=== PATIENT | female | born 1965 | race Caucasian/White ===

== ENCOUNTER 2020-06-06 12:19 | Emergency (ER) | payer OTHER, SELFPAY ==
--- NOTE | 2020-06-06 12:49 | ED.GENADULT ---
HPI - General Adult General Chief complaint: Urogenital-Female Stated complaint: POS UTI Time Seen by Provider: 06/06/20 12:52 Source: patient Mode of arrival: ambulatory Limitations: no limitations History of Present Illness HPI narrative: 54-year-old female patient presents to the [facility] with complaints of urinary symptoms that started this morning. Patient states she has had pain with urination, she thinks she has noticed some blood in her urine, urgency and frequency. Patient states she has a little bit of low back pain but denies any fevers, body aches or chills. Patient denies any or breast-feeding or any chance for STDs stating that she is not currently sexually active. Related Data Home Medications Medication Instructions Recorded Confirmed clonazepam 0.25 mg PO HS 06/06/20 06/06/20 Allergies Allergy/AdvReac Type Severity Reaction Status Date / Time No Known Allergies Allergy Verified 06/06/20 12:44 Review of Systems Review of Systems: Narrative: CONSTITUTIONAL: Denies fever, chills, or sweats. EYES: Denies visual changes, redness, or discharge. ENT: Denies rhinorrhea, congestion, sore throat, or otalgia. CARDIOVASCULAR: Denies chest pain, palpitations, or edema. RESPIRATORY: Denies cough or dyspnea. GASTROINTESTINAL: Denies abdominal pain, nausea, vomiting, or diarrhea. GENITOURINARY: Positive dysuria and hematuria started this morning SKIN: Denies rash or itching. MUSCULOSKELETAL: Denies back pain, joint pain, or myalgia. NEUROLOGIC: Denies headache, numbness, or weakness. PSYCHIATRIC: Denies anxiety or depression. PMFSH Comments At the time of my signature I agree with nursing past medical history, surgical, social, and family history. There is no relevant family history pertinent to the presenting complaint. Exam Narrative: Exam Narrative: GENERAL: Well-appearing, well-nourished, and in no acute distress. HEAD: Normocephalic, atraumatic. EYES: PERRLA and EOMI. ENT: Nares clear, no rhinorrhea or epistaxis. Mucous membranes moist. NECK: Supple. No lymphadenopathy CHEST: Clear to auscultation. No respiratory distress. HEART: Regular rate and rhythm. No murmur heard. Normal peripheral pulses. ABDOMEN: Soft, nontender, nondistended, normal active bowel sounds. Patient does have a little left-sided CVA tenderness on percussion. EXTREMITIES: Normal range of motion. No edema. SKIN: Warm, dry, no rash. NEURO: No focal deficits. Alert and oriented x3. Course Vital Signs Vital signs: Vital signs reviewed. Medical Decision Making Differential Diagnosis Differential Diagnosis: Differential diagnosis: Uncomplicated lower UTI, uncomplicated UTI, pyelonephritis Cussed with patient it does appear that based on her symptoms as well as her urine dip that she does have a urinary tract infection. Discussed with patient we will go ahead and start her on some antibiotics as well send her home with some Pyridium for the urinary pain. Discussed with patient that if the urine culture shows that she needs a different type of antibiotic based on her culture results then we would call her and change her antibiotic at that time. Patient verbalized understanding of this denies any other questions or concerns at this time. Lab Data Labs: Urine Glucose Negative Reference Range: Negative Urine Bilirubin Negative Reference Range: Negative Urine Ketone Negative Reference Range: Negative Urine Specific [place] 1.010 Reference Range:1.001-1.035 Urine Blood 3+ Reference Range: Negative * * Urine pH 6.0 Reference Range: 5.0-9.0 Urine Protein 2+ Reference Range: Negative Urine Urobilinogen 0.2 Reference Range: 0.2-1.0 Urine Nitrate Negative Reference Range: Ne
== END 2020-06-06 13:04 | disposition home or self-care (01) ==
PROVIDERS: Emergency Provider Nurse Practitioner Family; PCP Internal Medicine
DX: N30.01 Acute cystitis with hematuria (principal)
CPT/HCPCS: 81003; 87086; 87088; 99213; G0463

== ENCOUNTER → 2021-03-30 15:14 | Outpatient (REF) | payer OTHER, SELFPAY | LOC: ANHLAB 15:14 | PROVIDERS: PCP Internal Medicine; Visit Provider Nurse Practitioner | DX: R22.31 Localized swelling, mass and lump, right upper limb (principal) | CPT/HCPCS: 88304 ==

== ENCOUNTER 2021-08-02 08:28 | Emergency (ER) | payer OTHER, SELFPAY ==
--- NOTE | 2021-08-02 08:33 | ED.URI ---
HPI - URI/Sore Throat General Chief Complaint: Upper Respiratory Infection Stated Complaint: clogged ear/cough/congestion Time Seen by Provider: 08/02/21 09:00 Source: patient and RN notes reviewed Mode of arrival: ambulatory Limitations: no limitations History of Present Illness HPI Narrative: 55-year-old female presents with concern for 4-day history of clogged ears, cough, congestion, nasal drainage. 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 She reports she had a negative rapid Covid test yesterday. She reports taking several [id number] remedies without relief. She denies shortness of breath, fever, chills. Reports body aches and general malaise MD elicited complaint: cough Related Data Home Medications Medication Instructions Recorded Confirmed clonazepam 0.25 mg PO HS 06/06/20 08/02/21 Allergies Allergy/AdvReac Type Severity Reaction Status Date / Time No Known Allergies Allergy Verified 08/02/21 09:07 Review of Systems Review of Systems: CONSTITUTIONAL: Reports malaise. Denies chills, sweats, or fever. EYES: Denies visual changes, redness, or discharge. ENT: Reports rhinorrhea, congestion, sinus pain, otalgia. Denies sore throat. CARDIOVASCULAR: Denies chest pain, palpitations, or edema. RESPIRATORY: Reports cough. Denies dyspnea. GASTROINTESTINAL: Denies abdominal pain, nausea, vomiting, diarrhea SKIN: Denies rash or itching. MUSCULOSKELETAL: Reports myalgia. NEUROLOGIC: Denies headache. All systems reviewed & are unremarkable except as noted in HPI and below PMFSH Past Medical History Medical History Anxiety Surgical History Surgical History History of appendectomy History of hysterectomy History of tonsillectomy Social History Social History (System 06/16/21 @ 11:46 by Aarti Valdez) Smoking status: Never smoker Alcohol intake: never Substance use: never Comments At time of signature, agree with nursing past medical, surgical, social and family history. There is no relevant family history pertinent to the presenting complaint Exam Narrative: GENERAL: Well-appearing, well-nourished, and in no acute distress. HEAD: Normocephalic EYES: PERRLA, conjunctivae clear ENT: Nares clear, clear discharge. Mucous membranes moist. TM pearly tavarez with dull light reflex bilaterally; no tragal tenderness. Oropharynx not erythematous without lesions. Tonsils not enlarged and without exudate, no drooling, no hoarseness, no trismus, uvula midline. NECK: Supple. No lymphadenopathy CHEST: Clear to auscultation, breath sounds equal. No wheezing, rhonchi, rales, or stridor. No respiratory distress, speaks in full sentences. Cough noted HEART: Regular rate and rhythm. No murmur heard. SKIN: Warm, dry, no rash. NEURO: Alert and oriented x3. PSYCH: Normal mood and affect Course Course Emergency Course: Patient is aware of diagnosis, understands and agrees to treatment plan. Anticipatory guidance given. Patient agrees to follow-up as directed and is aware of reasons to seek care at the emergency department. Portions of this record may have been created with voice recognition software Vital Signs Vital signs: Vital Signs Temperature 98.8 F 08/02/21 08:43 Pulse Rate 83 08/02/21 08:43 Respiratory Rate 16 08/02/21 08:43 Blood Pressure 127/78 08/02/21 08:43 Pulse Oximetry 99 08/02/21 08:43 Temperature 98.8 F 08/02/21 08:43 Pulse Rate 83 08/02/21 08:43 Respiratory Rate 16 08/02/21 08:43 Blood Pressure 127/78 08/02/21 08:43 Pulse Oximetry 99 08/02/21 08:43 Reviewed. MDM - URI/Sore Throat MDM Narrative Medical decision making narrative: Differential diagnosis considered: Olmedo virus, strep pharyngitis, allergic rhinitis, upper respiratory tract infection, sinusitis, rhinosinusitis, nasopharyngit
[2021-08-02 08:43] VITALS: BP 127/78; PULSE 83; RESP 16; TEMP 37.1; O2SAT 99
== END 2021-08-02 09:25 | disposition home or self-care (01) ==
PROVIDERS: Emergency Provider Nurse Practitioner; PCP Internal Medicine
DX: J06.9 Acute upper respiratory infection, unspecified (principal); Z20.822 Contact with and (suspected) exposure to COVID-19
CPT/HCPCS: 87426; 99213; C9803; G0463

== ENCOUNTER 2021-11-25 15:39 | Emergency (ER) | payer OTHER, SELFPAY ==
[2021-11-25 15:49] VITALS: BP 123/69; PULSE 75; RESP 16; TEMP 36.7; O2SAT 99
--- NOTE | 2021-11-25 15:55 | ED.FEMALEGU ---
HPI - Female Genitourinary General Chief complaint: Urogenital-Female Stated complaint: UTI Time Seen by Provider: 11/25/21 15:55 Source: patient Mode of arrival: ambulatory Limitations: no limitations History of Present Illness HPI Narrative: 55-year-old female presents with urinary urgency frequency dysuria since yesterday. Denies fever chills, denies nausea vomiting. No abdominal or back pain. Denies of frequent UTIs. All systems reviewed and negative except as noted above. Related Data Home Medications Medication Instructions Recorded Confirmed clonazepam 1 mg PO BID 11/25/21 11/25/21 trazodone 100 mg PO HS 11/25/21 11/25/21 Allergies Allergy/AdvReac Type Severity Reaction Status Date / Time No Known Allergies Allergy Verified 11/25/21 15:41 Review of Systems Review of Systems: CONSTITUTIONAL: Denies fever, chills, or sweats. EYES: Denies visual changes, redness, or discharge. ENT: Denies rhinorrhea, congestion, sore throat, or otalgia. CARDIOVASCULAR: Denies chest pain, palpitations, or edema. RESPIRATORY: Denies cough or dyspnea. GASTROINTESTINAL: Denies abdominal pain, nausea, vomiting, or diarrhea. GENITOURINARY: Reports dysuria. Denies hematuria. SKIN: Denies rash or itching. MUSCULOSKELETAL: Denies back pain, joint pain, or myalgia. NEUROLOGIC: Denies headache, numbness, or weakness. PSYCHIATRIC: Denies anxiety or depression. All other systems reviewed are negative, except as documented in HPI. [facility] Past Medical History Medical History Anxiety Surgical History Surgical History History of appendectomy History of hysterectomy History of tonsillectomy Social History Social History (System 06/16/21 @ 11:46 by Aarti Valdez) Smoking status: Never smoker Alcohol intake: never Substance use: never Comments At time of signature, agree with nursing past medical, surgical, social and family history. There is no relevant family history pertinent to the presenting complaint. Exam Narrative: GENERAL: This is a well-nourished, well-developed patient, in no apparent distress. HEAD: normocephalic, atraumatic. EYES: PERRL. Sclera clear/white. EARS: External ears normal. NOSE: External nose normal. THROAT: Mucous membranes moist. NECK: Neck supple, non-tender without lymphadenopathy, masses or thyromegaly. CARDIOVASCULAR: Regular rate and rhythm without murmurs, gallops, or rubs. RESPIRATORY: Clear to auscultation. Breath sounds equal bilaterally. No wheezes, rales, or rhonchi. SKIN: warm, Dry, intact with no suspicious lesions or rash, good texture and turgor. NEURO: awake, alert, and oriented to person, place and time. There were no obvious focal neurologic abnormalities. EXTREMITIES: Normal range of motion. BACK: Nontender without deformity. No CVA tenderness. Course Course Level of Care: Express Care Visit Vital Signs Vital signs: Vital Signs Temperature 36.7 C 11/25/21 15:49 Pulse Rate 75 11/25/21 15:49 Respiratory Rate 16 11/25/21 15:49 Blood Pressure 123/69 11/25/21 15:49 Pulse Oximetry 99 11/25/21 15:49 Temperature 36.7 C 11/25/21 15:49 Pulse Rate 75 11/25/21 15:49 Respiratory Rate 16 11/25/21 15:49 Blood Pressure 123/69 11/25/21 15:49 Pulse Oximetry 99 11/25/21 15:49 Reviewed MDM - Female Genitourinary MDM Narrative Medical decision making narrative: Patient is aware of diagnosis, understands and agrees to treatment plan. Anticipatory guidance given. Patient agrees to follow-up as directed and is aware of reasons to seek care at the emergency department. Portions of this record may have been created with voice recognition software Differential Diagnosis Differential diagnosis: Likely urinary tract infection and cystitis Lab Data Labs: Urine Glucose Trace
== END 2021-11-25 16:03 | disposition home or self-care (01) ==
PROVIDERS: Emergency Provider Nurse Practitioner Family; PCP Internal Medicine
DX: N39.0 Urinary tract infection, site not specified (principal); F41.9 Anxiety disorder, unspecified
CPT/HCPCS: 81003; 87086; 87088; 99213; G0463

== ENCOUNTER 2023-06-05 13:00 | Emergency (ER) | payer OTHER, SELFPAY ==
[2023-06-05 13:16] VITALS: BP 106/68; PULSE 68; RESP 16; TEMP 36.9; O2SAT 99
--- NOTE | 2023-06-05 14:08 | ED.URI ---
HPI - URI/Sore Throat General Chief Complaint: Upper Respiratory Infection Stated Complaint: HEADACHE/CONGESTION Time Seen by Provider: 06/05/23 14:03 Source: patient and RN notes reviewed Mode of arrival: ambulatory Limitations: no limitations History of Present Illness HPI Narrative: Patient presents today complaining of an 8 day history of nasal congestion sinus pressure, bilateral ear pressure, headache, cough. Denies fever or shortness of breath. States symptoms have worsened since onset. She has been taking Zyrtec D, ibuprofen, and Excedrin without much relief and currently rates her pain 5/10. Related Data Home Medications Medication Instructions Recorded Confirmed clonazepam 1 mg tablet 1 mg PO BID 11/25/21 11/25/21 trazodone 100 mg tablet 100 mg PO HS 11/25/21 11/25/21 Allergies Allergy/AdvReac Type Severity Reaction Status Date / Time No Known Allergies Allergy Verified 11/25/21 15:41 Review of Systems Review of Systems: CONSTITUTIONAL: Denies body aches, fever, chills, or sweats. EYES: Denies visual changes, redness, or discharge. ENT: Denies rhinorrhea, sore throat, or otalgia.+ nasal congestion, ear fullness CARDIOVASCULAR: Denies chest pain, palpitations, or edema. RESPIRATORY: Denies dyspnea.+ cough GASTROINTESTINAL: Denies abdominal pain, nausea, vomiting, or diarrhea. GENITOURINARY: Denies dysuria or hematuria. SKIN: Denies rash, itching, or wounds. MUSCULOSKELETAL: Denies back pain, joint pain, or myalgia. NEUROLOGIC: Denies numbness, tingling, or weakness.+ headache PSYCH: Denies depression or anxiety. [facility] Past Medical History Medical History Anxiety Surgical History Surgical History History of appendectomy History of hysterectomy History of tonsillectomy Social History Social History Smoking status: Never smoker Alcohol intake: never Substance use: never Comments At time of signature, I have reviewed and agree with nursing past medical, surgical, social and family history unless otherwise noted. Please see nursing chart for further information. There is no relevant family history pertinent to the presenting complaint Exam Narrative: GENERAL: Mildly ill-appearing, well-nourished, and in no acute distress. HEAD: Normocephalic, atraumatic. EYES: EOMI. No redness or drainage. Conjunctivae normal. ENT: Mucous membranes pink and moist. Nares congested. Bilateral frontal and maxillary sinus tenderness. Mildly edematous nasal turbinates. No rhinorrhea. TMs normal bilaterally. Throat normal. Uvula midline. NECK: Normal AROM. Supple. No lymphadenopathy. CHEST: No respiratory distress. Clear to auscultation. HEART: Regular rate and rhythm. No murmur appreciated. Normal peripheral pulses. EXTREMITIES: Normal range of motion. No edema. SKIN: Warm, dry, no rash. Capillary refill normal. Normal skin turgor. NEURO: No focal deficits. Alert and oriented x3. Gait steady. PSYCH: Normal affect. No signs of depression or anxiety. Course Course Level of Care: Express Care Visit Vital Signs Vital signs: Vital Signs Temperature 98.5 F 06/05/23 13:16 Pulse Rate 68 06/05/23 13:16 Respiratory Rate 16 06/05/23 13:16 Blood Pressure 106/68 06/05/23 13:16 Pulse Oximetry 99 06/05/23 13:16 Temperature 98.5 F 06/05/23 13:16 Pulse Rate 68 06/05/23 13:16 Respiratory Rate 16 06/05/23 13:16 Blood Pressure 106/68 06/05/23 13:16 Pulse Oximetry 99 06/05/23 13:16 Reviewed MDM - URI/Sore Throat MDM Narrative Medical decision making narrative: Will treat patient with a course of Augmentin. No testing indicated at this time. Anticipatory guidance given. Differential Diagnosis Differential diagnosis: Likely upper respiratory infection, sinusitis and viral
== END 2023-06-05 14:19 | disposition home or self-care (01) ==
PROVIDERS: Emergency Provider Nurse Practitioner; PCP Internal Medicine
DX: J01.90 Acute sinusitis, unspecified (principal)
CPT/HCPCS: 99213; G0463

== ENCOUNTER 2024-02-25 00:34 | Day surgery (SDC) | payer OTHER, SELFPAY ==
[2024-02-11 11:23] VITALS: BMI 24.4
--- NOTE | 2024-02-11 11:31 | PC.NURSE ---
Report to the Outpatient Waiting Room, entrance under the green pavilion located off [facility], at time _1000_ on date _[id number]_. Planned Procedure Time: _1200_. Time changes happen often and if your time is changed the preop area will call you the afternoon before. - You and your visitor will be asked to self-screen and do not enter if you have any COVID symptoms. - A mask is optional within the hospital at this time. Patients may have clear liquids (water, carbonated beverages, clear teas, apple juice) until 3 hours prior to surgery with a maximum of 20 ounces. - No food from midnight until time of surgery Take the following medications with a SIP of water the morning of surgery: _Clonazepam DO NOT STOP ANY OF YOUR OTHER PRESCRIPTION MEDICATIONS PRIOR TO SURGERY ?EXCEPT THE FOLLOWING Medications to discontinue per physician None Date to take last dose Please no make-up, nail montserratian, hairspray, perfume, deodorant, or body powder the day of surgery. No jewelry (including any body piercings) or valuables the day of surgery, leave them at home. Please take a shower or bath the night before, or the morning of, surgery with an antibacterial soap. Wear comfortable, loose fitting clothing. - Jewelry must be removed prior to entering the operating room. Rings and piercings that are not removed may be cut off. - The hospital will not accept responsibility for valuables. - Please leave all valuables, including medications, at home the day of surgery. If you are going home after surgery, a licensed front end loader driver must drive you home. - NO public transportation without another adult if you receive anesthesia. - We recommend that an adult stay with you for 24 hours following discharge. - We also recommend that you do not drive, make important decision, drink alcoholic beverages, or take any drugs that were not prescribed by your health care provider for at least 24 hours after your discharge time. Follow any additional instructions given to you from your surgeon. If you or anyone in your household have experienced Covid symptoms in the past week, please notify your surgeon or the nurse liaison at the phone number below for possible testing. Telephone instructions given to __Aarti_and asked if any additional questions and then verbalized understanding. Patient advised to call surgeon office or pre surgery nurse liaison [phone] if any additional questions.
--- NOTE | 2024-02-24 11:12 | PM.IMHP ---
H&P: HPI History of Present Illness Date/Time: 02/24/24 11:12 Chief Complaint: Right de Quervain tenosynovitis and left trigger thumb Narrative: Pre 8-year-old female who presents today for 1st dorsal compartment release of the right wrist as well as A1 chelita release of the left thumb. She has been having symptoms of both of these since earlier this year. She has been using a wrist brace for the de Quervain for last several months unfortunately this is not helped. The triggering in the thumb is becoming prominent and painful with basis. Patient has had 1st dorsal compartment release done on the left wrist in the past, this was after cortisone injection that did not improve her symptoms. She declined cortisone injection in the 1st dorsal compartment as well as the thumb. She feels she would rather proceed with surgery rather than treat these nonsurgical. Review of Systems Review of Systems: All systems reviewed & are unremarkable except as noted in HPI and below PMFSH Past Medical History Medical History (Updated 01/27/24 @ 15:09 by Jed Smith MD) Anxiety Surgical History Surgical History (Updated 01/15/24 @ 12:39 by Natasha Hollingsworth CMA) History of appendectomy History of hysterectomy History of surgery on left wrist History of tonsillectomy Social History Social History (Updated 01/15/24 @ 12:39 by Natasha Hollingsworth CMA) Smoking status: Never smoker Alcohol intake: never Substance use: never Do You Feel Safe in your Home?: Yes Lack of Transportation: No Lack of Food: Never True Concerned About Future Housing: No Difficulty Paying Gas/Electric Bills: No Difficulty Paying for Meds: No Currently Unemployed: No Education: Bachelor's Degree Living arrangements: with family Occupation/Education: occupation Additional occupation/education comments: teacher Spiritual care concerns: No Meds Home Medications and Allergies Home Medications Medication Instructions Recorded Confirmed Type clonazepam 1 mg tablet 1 mg PO BID 11/25/21 02/11/24 History trazodone 100 mg tablet 100 mg PO HS 11/25/21 02/11/24 History Allergies Allergy/AdvReac Type Severity Reaction Status Date / Time No Known Allergies Allergy Verified 02/11/24 11:23 Exam Narrative: 58-year-old female alert pleasant. She has moderate tenderness over the 1st dorsal compartment in the right wrist. She has severe pain with Dhruv's maneuver. No pain at the 1st CMC joint. Sensation is all intact in all 5 fingers. Her left thumb she has moderate tenderness over the A1 chelita. She does have active triggering which is extremely painful. She has 2+ radial pulse in both wrists. Resp: Auscultation: clear to auscultation bilaterally Cardio: Rate: regular rate Rhythm: regular rhythm Assessment and Plan Assessment and plan (1) De Quervain's tenosynovitis, right: Code(s): M65.4 - Radial styloid tenosynovitis [de Quervain] Status: Acute (2) Trigger thumb, left thumb: Code(s): M65.312 - Trigger thumb, left thumb Status: Acute Assessment and Plan: Patient has a left trigger thumb as well as right de Quervain's in her wrist. She does not improve nonsurgical treatment. At this point she would like to proceed with surgery. Surgical procedure as well as the risks and complications were discussed in detail questions were answered we will proceed. Patient will avoid any aspirin ibuprofen products 1 week prior to surgery.
--- NOTE | 2024-02-24 14:51 | WPDANESEPP ---
Anes - Eval Pre Procedure Procedure: Operation Date: 02/25/24 12:00 Proposed Procedures p First Dorsal Compartment Release Right Wrist, - Jed Smith MD s A-1 Salvador Release Left Thumb - Jed Smith MD Date/Time: 02/24/24 14:51 Pre Op Diagnosis: De Quervain's Tenosynovitis rt wrist Patient Data Age: 58 Gender: F Height: 1.55 m Weight: 58.6 kg Allergies Allergy/AdvReac Type Severity Reaction Status Date / Time No Known Allergies Allergy Verified 02/11/24 11:23 Home Medications Medication Instructions Recorded Confirmed Type clonazepam 1 mg tablet 1 mg PO BID 11/25/21 02/11/24 History trazodone 100 mg tablet 100 mg PO HS 11/25/21 02/11/24 History Patient hx anesthesia problems: none Family hx anesthesia problems: none Results Review: All pre-operative results and documents have been reviewed as part of the pre-operative evaluation. [facility] Past Medical History Medical History (Updated 02/24/24 @ 14:51 by Dougie Calvert Jr., CRNA) Anxiety De Quervain's tenosynovitis, right Subcutaneous mass Trigger thumb, left thumb Surgical History Surgical History History of appendectomy History of hysterectomy History of surgery on left wrist History of tonsillectomy Social History Social History Smoking status: Never smoker Alcohol intake: never Substance use: never Do You Feel Safe in your Home?: Yes Lack of Transportation: No Lack of Food: Never True Concerned About Future Housing: No Difficulty Paying Gas/Electric Bills: No Difficulty Paying for Meds: No Currently Unemployed: No Education: Bachelor's Degree Living arrangements: with family Occupation/Education: occupation Additional occupation/education comments: teacher Spiritual care concerns: No Exam Day of Procedure 02/24/24 14:51 Patient weight: normal
[2024-02-25] VITALS (9 sets, daily range): BP systolic 104–138; BP diastolic 60–82; PULSE 63–88; RESP 12–18; TEMP 36.1–37.3; O2SAT 96–100; BMI 25.0
[2024-02-25] MEDS: KETOROLAC 15 MG/ML VIAL (*BKC) IV PUSH (10:25)
[2024-02-25] MEDS: ACETAMINOPHEN 500 MG TABLET 1000 MG PO (10:25)
--- NOTE | 2024-02-25 10:46 | P.PNAN_ITS ---
Anes - Eval Final PreProcedure Day of Procedure 02/25/24 10:46 Patient weight: normal Heart: regular rate and rhythm Lungs: clear to auscultation Airway: Mallampati scale class II Neurological: alert and oriented Last oral intake: >/= 8 hours ASA classification: II Emergent: no Anesthetic plan: proceed Anesthesia type and monitoring: general LMA and standard monitoring Results Review: All pre-operative results and documents have been reviewed as part of the pre- operative evaluation. Informed Consent: The patient's anesthetic plan and its attendant risks and benefits were discussed with the patient/family/POA. Questions were solicited and answers provided to the satisfaction of the patient/family/POA.
--- NOTE | 2024-02-25 11:07 | WPDHPUPDATE1 ---
History and Physical Update Update Date/Time: 02/25/24 11:07 History and Physical has been reviewed, including an updated exam of the patient. There are NO changes in the patient's condition. Risks, benefits, and alternatives have been discussed and questions answered. Patient agrees to proceed with procedure.
[2024-02-25] MEDS: ceFAZolin 2 GM/D5W 50 ML 2 GM/50 ML BAG IVPB (11:23)
[2024-02-25] MEDS: LIDO 1%/EPINEPHRINE 1:100,000 50 ML VIAL INFILTRATE (11:47)
[2024-02-25] MEDS: LIDOCAINE HCL 1% LOCAL INJ 20 ML VIAL INFILTRATE (11:47)
[2024-02-25] MEDS: LACTATED RINGERS 1,000 ML 30 ML IV CONT ×2 (12:36)
--- NOTE | 2024-02-25 12:42 | W.PM.PROC2 ---
Procedure Note - Detailed Date of Procedure 02/25/24 Pre-op Diagnosis De Quervain's Tenosynovitis rt wrist, left trigger thumb Post-op Diagnosis Same Procedure Performed First dorsal compartment tendon release right wrist, A1 chelita release flexor tendon sheath left thumb Surgeon Jed Smith MD Breaker Operator Angeli Anesthesia General Description of Procedure Patient was brought to the operating room and general anesthesia was administered. There was an IV in the left and cubital fossa a tourniquet was placed on the right arm. Both upper extremities were prepped and draped usual fashion. She received 2 g of Ancef preoperatively. We started on the right side. Incision was marked limb was exsanguinated tourniquet elevated to 200 mmHg on the right arm. A 1 cm transverse incision was made 1 cm proximal to the tip of the radial styloid of the right wrist and 1% plain lidocaine used as local anesthesia. Once through the dermis the dermal flaps were elevated proximal and distal to the incision and the superficial branch of radial nerve was retracted volarly and the associated cephalic vein dorsally exposing the 1st dorsal compartment tendon sheath. The sheath was incised proximally and release carried out from proximal to distal stain a little bit dorsal to the mid point of the sheath itself to leave adequate volar flap and complete release of the 1st dorsal compartment tendon sheath was achieved. There was a fair amount of tenosynovitis of the small amount of this was carefully removed. We visualized the extensor pollicis brevis tendon and the dorsal aspect of the sheath. It was not in a separate compartment but in the same compartment with the APL through its length and we confirmed that this tendon extended the MP joint of the thumb. Wound was irrigated and hemostasis was achieved and the wound closed with 4-0 subcutaneous Vicryl and glue. Tourniquet released. Total tourniquet time 23 minutes. On the left hand, we used 1% lidocaine with epi and a longitudinally oriented chamfer on incision was made centered over the A1 chelita. I could see that there was going to be little more bleeding than optimal without use of tourniquet. We used an Esmarch and made 5 wraps around the mid forearm and proceeded to elevate the skin little bit off the subcutaneous fat and with longitudinal dissection this brought us directly down onto the A1 chelita of the thumb. Distal edge of the A1 chelita was identified and incised from that point proximally under loupe magnification. Complete release was achieved and we could see somewhat thickened area of FPL tendon but no other abnormality. I did not specifically visualized the digital nerves. We removed the Esmarch which was on for about 5 or 6 minutes and hemostasis was achieved with a few minutes of pressure and wound closed with 5 0 nylon in a soft bulky dressing applied. Soft bulky dressing was then applied on the right hand with the wrist in mild dorsiflexion. There are no known complications she was transferred postop recovery room in stable condition. [facility] - Charge Forward: Surgery [place] (Right wrist 1st dorsal compartment release for de Quervain, A1 chelita release tendon sheath left thumb for trigger thumb.)
[2024-02-25] MEDS: fentaNYL CITRATE INJ (*CRX) 100 MCG/2 ML VIAL 25 MCG IV PUSH ×2 (13:17→13:24)
[2024-02-25] MEDS: oxyCODONE HCL (*CRX) 5 MG TAB IR PO (14:08)
== END 2024-02-25 14:52 | disposition home or self-care (01) ==
PROVIDERS: PCP Family Medicine; Visit Provider Orthopaedic Surgery
PROC: (CPT 25000; principal; 2024-02-25 12:00)
PROC: (CPT 26055; 2024-02-25 12:00)
DX: M65.4 Radial styloid tenosynovitis [de Quervain] (principal); M65.312 Trigger thumb, left thumb; F41.9 Anxiety disorder, unspecified
CPT/HCPCS: 25000; 26055; A9270; J0690; J1100; J1885; J2250; J2704; J3010; J7120

== ENCOUNTER 2025-08-21 09:47 | Emergency (ER) | payer OTHER, SELFPAY ==
--- NOTE | ~2025-08-21 | CT_ITS ---
CT abdomen pelvis w con Clinical History: abdominal pain . Comparison: None Technique: Axial images lung bases to symphysis pubis IV contrast information not listed in PACS Coronal, sagittal reformats CT images acquired with automatic exposure control for dose reduction DLP: 263 mGy-cm Findings: Lung bases: Clear. Visualized heart and pericardium: Unremarkable. Liver: Unremarkable. Gallbladder: Unremarkable. Spleen: Unremarkable. Pancreas: Unremarkable. Adrenal glands: Unremarkable. Kidneys: Right kidney- No hydronephrosis. No renal stones. Left kidney- No hydronephrosis. No renal stones. Distal esophagus/stomach: Unremarkable. Small bowel loops: Normal caliber and wall thickness. Colon: Diverticula. Normal caliber and wall thickness. Appendectomy. Nodes: No enlarged nodes. Peritoneum: No ascites. No free air. Urinary bladder: Unremarkable. Uterus: Removed. Adnexa: No masses. Bones: No acute bony abnormality. Soft tissues: Unremarkable. Aorta: No aneurysm or dissection. IVC: Unremarkable. Main portal vein/SMV/splenic vein: Patent. IMPRESSION: 1. No acute findings. Reviewed, dictated and finalized at location R. AGE INSPECTOR IMPRESSION: 1. No acute findings.
--- OUTSIDE RECORDS SUMMARY | 2025-08-21 09:49 | XMS_ITS | Patient Health Record ---
Author Organization [facility] DescribeMe Address [address] [place] [address] Care Team Providers Care Consumer Relations Complaint Clerk Name Role Phone Ravi Lynch Unavailable [phone] Vargas Bocanegra Felicita Unavailable [phone] Allergies No Known Allergies Results Component Value Reference Range Flag Notes UDT Reviewed date:09/30/2024 01:47:37 PM Interpretation: Performing Lab: Notes/Report: Amphetamine (AMP) N 0 - 1000 ng/ml Buprenorphine (BUP) N 0 - 10 ng/ml Oxazepam (BZO) N 0 - 300 ng/ml Cocaine (GENET) N 0 - 300 ng/ml Methamphetamine (mAMP) N 0 - 300 ng/ml Methylenedioxymethamphetamin e (MDMA) N 0 - 500 ng/ml Morphine (MOP) N 0 - 25 ng/ml Methadone (MTD) N 0 - 300 ng/ml Oxycodone (OXY) N 0 - 300 ng/ml THC N 0 - 50 ng/ml x N 0 - 1000 ng/ml x N 0 - 1000 ng/ml x N 0 - 300 ng/ml x N 0 - 300 ng/ml x N 0 - 300 ng/ml UDT Reviewed date:12/09/2024 02:03:08 PM Interpretation: Performing Lab: Notes/Report: Amphetamine (AMP) N 0 - 1000 ng/ml Buprenorphine (BUP) N 0 - 10 ng/ml Oxazepam (BZO) N 0 - 300 ng/ml Cocaine (GENET) N 0 - 300 ng/ml Methamphetamine (mAMP) N 0 - 300 ng/ml Methylenedioxymethamphetamin e (MDMA) N 0 - 500 ng/ml Morphine (MOP) N 0 - 25 ng/ml Methadone (MTD) N 0 - 300 ng/ml Oxycodone (OXY) N 0 - 300 ng/ml THC N 0 - 50 ng/ml x N 0 - 1000 ng/ml x N 0 - 1000 ng/ml x N 0 - 300 ng/ml x N 0 - 300 ng/ml DRUG MONITOR, ELVIRA HECTOR URI [place] ([id number]) Reviewed date:10/05/2024 04:19:06 PM Interpretation: Performing Lab:[facility] [facility] Jese Gonzalez, Director - [address] [facility] Notes/Report: FASTING: NO Alphahydroxyalprazolam NEGATIVE <25 ng/mL Alphahydroxymidazolam NEGATIVE <50 ng/mL Alphahydroxytriazolam NEGATIVE <50 ng/mL Aminoclonazepam 352 <25 ng/mL H Hydroxyethylflurazepam NEGATIVE <50 ng/mL Lorazepam NEGATIVE <50 ng/mL Nordiazepam NEGATIVE <50 ng/mL Oxazepam NEGATIVE <50 ng/mL Temazepam NEGATIVE <50 ng/mL Benzodiazepines Comments See Benzodiazepines Notes, LDT Notes Notes and Comments This drug testing is for medical treatment only. Analysis was performed as non-forensic testing and these results should be used only by healthcare providers to render diagnosis or treatment, or to monitor progress of medical conditions. Benzodiazepines Notes: Aminoclonazepam detected is consistent with the use of the drug Clonazepam. LDT Notes: Confirmation tests were developed and their analytical performance characteristics have been determined by [facility]. It has not been cleared or approved by the FDA. This assay has been validated pursuant to the CLIA regulations and is used for clinical purposes. Healthcare Providers needing Interpretation assistance, please contact us at [phone] ( ) M-F, 8am to 10pm EST Reason For Referral No Information Medications Medication SIG (Take, Route, Frequency, Duration) Notes Start Date End Date Status clonazePAM 1 MG Tablet 1 tablet Oral twice a day; Duration: 30 days cancel all previous RX on clonazepam 05/17/2025 Active traZODone HCl 100 MG Tablet 1 tablet at bedtime Oral Once a day; Duration: 90 days Active traZODone HCl 100 MG Tablet 1 tablet at bedtime Oral Once a day; Duration: 90 days Active Escitalopram Oxalate 5 MG Tablet TAKE 1 TABLET BY MOUTH EVERY DAY FOR 30 DAYS; Duration: 90 Active Immunizations Vaccine Route Administration Date Status Comme andreina Brady Covid-19 Vaccine Unknown 04/05/2021 Administere d Social History Tobacco Use: Social History Observation Description Date Details (start date - stop date) Never Smoker NA - NA Sex Assigned At : Social History Observation Description Sex Assigned At Female Social History Miscellaneous: Social Info Question Answer Notes Advance Care Planning Are you your own decision-maker Yes Do you have Power of Logistics Analyst for Health or [facility]? No Safety issues: Are there any firearms in the house? Ye s Social History Social Info Question Answer Notes Household: Marital Status: Number of Adults in household: 2 Number of Children in Household: 0 Level of Education: Finished College Drug/Alcohol: Social Info Question Answer Notes Drugs Have you used drugs other than those for medical reasons in the past 12 months? No AUDIT-C (Standard) Interpretation Positive Did you have a drink contain ing alcohol in the past year? Yes How often did you have six or more drinks on one occasion in the past year? Less than monthly (1 point) How many drinks did you have on a typical day when you were drinking in the past year? 1 or 2 drinks (0 point) How often did you have a drink containing alcohol in the past year? Monthly or less (1 point) Tobacco Use: Social Info Question Answer Notes Tobacco Control (Standard) Tobacco use: Nonsmoker Additional Details Category Social Info Options Details Miscellaneous: Occupation: Teacher Migrated Social History Migrated Social History Alcohol Intake: Occasional 07/12/2020,Tobacco Years: Never smoker 07/12/2020 Section Notes: Occupation: Retired After 34 Years At [employer] Exercise habits: Resumed Exercising Over The Past Three Weeks Problems Problem Type SNOMED Code ICD Code Onset Dates Problem Status W/U Status Risk Notes Problem Mild recurrent major depression (60651847) Major depressive disorder, recurrent, mild (F33.0) Active confirmed Problem Severe recurrent major depression without psychotic features (50746019) Major depressive disorder, recurrent severe without psychotic features (F33.2) Active confirmed Problem Generalized anxiety disorder (27970482) Generalized anxiety disorder (F41.1) Active confirmed Problem Primary insomnia (5499926) Primary insomnia (F51.01) Active confirmed Problem Acute stress disorder (58866144) Acute stress disorder (F43.0) Active confirmed Vital Signs Heart Rate 71 /min 05/17/2025 Height-cm 154.94 cm 05/17/2025 Blood pressure diastolic 70 mm Hg 05/17/2025 Weight-kg 65.41 kg 05/17/2025 Height 61.00 in 05/17/2025 Blood pressure systolic 110 mm Hg 05/17/2025 Weight 144.2 lbs 05/17/2025 BMI 27.24 kg/m2 05/17/2025 Encounters Encounter Location Date Provider Diagnosis [facility] [place] [address] [address] 08/27/2024 Ravi Cris Generalized anxiety disorder F41.1 and Major depressive disorder, recurrent severe without psychotic features F33.2 [facility] [place] [address] [address] 09/29/2024 Felicita Bocanegra Major depressive disorder, recurrent, mild F33.0 and Generalized anxiety disorder F41.1 [facility] [place] [address] [address] 09/30/2024 Ravi Cris Generalized anxiety disorder F41.1 and Major depressive disorder, recurrent severe without psychotic features F33.2 [facility] [place] [address] [address] 12/03/2024 Felicita Bocanegra Generalized anxiety disorder F41.1 ; Major depressive disorder, recurrent, mild F33.0 and Acute stress disorder F43.0 [facility] [place] [address] [address] 12/09/2024 Ravi Cris Generalized anxiety disorder F41.1 ; Encounter for screening for cardiovascular disorders Z13.6 ; Encounter for screening for depression Z13.31 and Major depressive disorder, recurrent, mild F33.0 [facility] [place] [address] [address] 05/17/2025 Ravi Cris Generalized anxiety disorder F41.1 ; Major depressive disorder, recurrent, mild F33.0 and Primary insomnia F51.01 [facility] [place] [address] [address] 08/21/2024 [facility] [address] [place] [address] 10/22/2024 [facility], [facility] [address] [place] [address] 12/07/2024 [facility], [facility] [address] [place] [address] 12/07/2024 [facility] [address] [place] [address] 04/14/2025 Ravi Dwyeram Assessments Encounter Date Diagnosis (ICD Code) Assessment Notes Treatment Notes Treatment Clinical Notes Section Notes 08/27/2024 Generalized anxiety disorder (ICD-10 - F41.1) Major Depressive Disorder - Assessment: Patient reports worsening depression, exacerbated by the holiday season, family gatherings, and stress related to work. Patient mentions this is the first time her has seen her this low. - Plan: - Initiate Lexapro (escitalopram) 5 mg once daily for depression and anxiety. - Monitor progress with monthly appointments. - Continue counseling with the patient's electric sign wirer. Anxiety - Assessment: Patient experiences anxiety related to work, family gatherings, and interactions with children. Patient reports feeling overwhelmed and having no coping skills at present. - Plan: - Lexapro (escitalopram) 5 mg once daily for depression and anxiety. - Continue counseling with the patient's electric sign wirer. Insomnia - Assessment: Patient is currently taking clonazepam and trazodone at night for sleep. - Plan: - Continue current medications for sleep. - Monitor progress with monthly appointments. Phobia of Children and Fear of Returning to Work - Assessment: Patient reports a developed phobia of children and fear of returning to work. Patient expresses concern about not trusting herself to return to the classroom. - Plan: - Address phobia and fear through counseling sessions with the patient's electric sign wirer. - Monitor progress with monthly appointments. Work-related Stress - Assessment: Patient is concerned about submitting an extension letter for the school board meeting and the implications of not submitting it on time. The school board office closes tomorrow and reopens on September 14, with a deadline of September 15 for the extension letter. - Plan: - Encourage the patient to submit the extension letter by the deadline. - Provide a note stating that the patient is under the physician's care and unable to work until February 06, 2025. Marital Stress - Assessment: Patient reports feeling overwhelmed by her 's constant concern and lack of understanding. Patient has been seeing her electric sign wirer twice a week due to concerns about her marriage. - Plan: - Encourage open communication between the patient and her . - Continue counseling with the patient's electric sign wirer to address marital stress. 09/29/2024 Major depressive disorder, recurrent, mild (ICD-10 - F33.0) 09/29/2024 Generalized anxiety disorder (ICD-10 - F41.1) 09/30/2024 Generalized anxiety disorder (ICD-10 - F41.1) 12/03/2024 Major depressive disorder, recurrent, mild (ICD-10 - F33.0) 12/03/2024 Generalized anxiety disorder (ICD-10 - F41.1) 12/09/2024 Generalized anxiety disorder (ICD-10 - F41.1) 05/17/2025 Generalized anxiety disorder (ICD-10 - F41.1) Persistent anxiety symptoms despite care home. Anxiety exacerbated by recent family conflict and stressful vacation. Patient has resumed regular exercise to help manage anxiety. - Continue Clonazepam 1 mg twice daily. 05/17/2025 Primary insomnia (ICD-10 - F51.01) Ongoing sleep disturbance despite care home. Patient takes trazodone nightly for sleep. - Continue trazodone at night for sleep. 05/17/2025 Major depressive disorder, recurrent, mild (ICD-10 - F33.0) 12/09/2024 Encounter for screening for cardiovascular disorders (ICD-10 - Z13.6) 08/27/2024 Major depressive disorder, recurrent severe without psychotic features (ICD-10 - F33.2) Major Depressive Disorder - Assessment: Patient reports worsening depression, exacerbated by the holiday season, family gatherings, and stress related to work. Patient mentions this is the first time her has seen her this low. - Plan: - Initiate Lexapro (escitalopram) 5 mg once daily for depression and anxiety. - Monitor progress with monthly appointments. - Continue counseling with the patient's electric sign wirer. Anxiety - Assessment: Patient experiences anxiety related to work, family gatherings, and interactions with children. Patient reports feeling overwhelmed and having no coping skills at present. - Plan: - Lexapro (escitalopram) 5 mg once daily for depression and anxiety. - Continue counseling with the patient's electric sign wirer. Insomnia - Assessment: Patient is currently taking clonazepam and trazodone at night for sleep. - Plan: - Continue current medications for sleep. - Monitor progress with monthly appointments. Phobia of Children and Fear of Returning to Work - Assessment: Patient reports a developed phobia of children and fear of returning to work. Patient expresses concern about not trusting herself to return to the classroom. - Plan: - Address phobia and fear through counseling sessions with the patient's electric sign wirer. - Monitor progress with monthly appointments. Work-related Stress - Assessment: Patient is concerned about submitting an extension letter for the school board meeting and the implications of not submitting it on time. The school board office closes tomorrow and reopens on September 14, with a deadline of September 15 for the extension letter. - Plan: - Encourage the patient to submit the extension letter by the deadline. - Provide a note stating that the patient is under the physician's care and unable to work until February 06, 2025. Marital Stress - Assessment: Patient reports feeling overwhelmed by her 's constant concern and lack of understanding. Patient has been seeing her electric sign wirer twice a week due to concerns about her marriage. - Plan: - Encourage open communication between the patient and her . - Continue counseling with the patient's electric sign wirer to address marital stress. 12/03/2024 Acute stress disorder (ICD-10 - F43.0) 09/30/2024 Major depressive disorder, recurrent severe without psychotic features (ICD-10 - F33.2) 12/09/2024 Encounter for screening for depression (ICD-10 - Z13.31) 12/09/2024 Major depressive disorder, recurrent, mild (ICD-10 - F33.0) 09/29/2024 Other Anxiety and Depression - Assessment: Patient experiences anxiety and depression, with school-related stressors and feelings of betrayal by the [employer] and administration. - Plan: - Continue current medications as prescribed by Dr. Lynch - Schedule regular follow-up appointments with RIGHT OF WAY WORKER for therapy and support - Consider EMDR therapy for addressing school-related stressors starting in December - Address feelings of betrayal by the union and administration during therapy sessions Occupational Stress and Burnout - Assessment: Patient is experiencing occupational stress and burnout, with lack of support from school administration impacting mental health. - Plan: - Continue medical leave from work as recommended by Dr. Lynch - Explore alternative coping strategies and stress management techniques during therapy sessions - Discuss potential long-term career plans and care home options - Acknowledge the impact of lack of support from the school administration on mental health Family Dynamics and Interpersonal Conflicts - Assessment: Patient is dealing with challenging family dynamics, particularly regarding Max and Aarti, and experiencing interpersonal conflicts. - Plan: - Develop healthy boundaries and communication strategies for dealing with challenging family members - Encourage open communication with about feelings and concerns related to family dynamics Social Isolation and Safety Concerns - Assessment: Patient is experiencing social isolation and has safety concerns related to an aggressive parent and lack of support from school administration. - Plan: - Develop a safety plan for potential encounters with the aggressive parent, including contacting the police if necessary - Encourage patient to engage in social activities and maintain connections with supportive friends and family members - Address feelings of isolation and fear during therapy sessions and explore potential coping strategies - Discuss specific safety concerns related to the aggressive parent and lack of support from the school administration Adjustment to New Family Roles and Responsibilities - Assessment: Patient is adjusting to new family roles and responsibilities, particularly related to babysitting and involvement with grandchildren. - Plan: - Discuss expectations and boundaries related to babysitting and involvement with grandchildren during therapy sessions - Encourage open communication with and family members about concerns and preferences related to childcare and family gatherings - Develop strategies for managing stress and anxiety related to new family roles and responsibilities 09/30/2024 Other Anxiety - Assessment: Patient reports significant decrease in anxiety since school board approved her care home. She is seeing a therapist, Felicita, with monthly appointments scheduled for the next three months. Patient is also seeing her electric sign wirer for additional support. - Plan: - Continue current treatment plan with clonazepam 1 mg twice daily (6 AM and 12:30-1 PM). - Reassess in three months or sooner if needed. Sleep Disturbance - Assessment: Patient reports feeling back to normal with her sleep routine while taking trazodone at night. - Plan: - Continue trazodone as prescribed. - Reassess in three months or sooner if needed. Lexapro Intolerance - Assessment: Patient experienced restlessness and abnormal arm movements while taking Lexapro for 6 days and has discontinued its use. - Plan: - No further action needed at this time, as patient's anxiety has improved with other interventions. Medication Refills - Plan: - Refill clonazepam 1 mg twice daily (44 tablets every 22 days). - Refill trazodone as needed. - Send prescriptions to [facility] in [place] and [place]. Follow-up - Plan: - Schedule follow-up appointment in three months. - Patient may return sooner if any concerns arise or if anxiety worsens. - Encourage patient to continue attending therapy sessions with Felicita and pastoral counseling with her . Lifestyle Changes - Assessment: Patient reports establishing a routine, including waking up at 6 AM and exercising on the treadmill by 9:30 AM, which has been helpful in managing her anxiety. - Plan: - Encourage continuation of established routine. 12/03/2024 Other Anxiety - Assessment: Aarti reports a significant reduction in anxiety following her care home paperwork completion. She attributes her previous high anxiety levels to work-related stress, particularly interactions with administrators. Aarti is currently on sick leave until her official care home date of January 30. She expresses interest in reducing her anxiety medication once her pension begins in May, indicating a perceived correlation between her work environment and anxiety symptoms. The patient demonstrates insight into her condition and appears to be actively managing her symptoms through life changes and medical intervention. - Plan: - Continue current anxiety medication regimen until next appointment with Dr. Lynch in December - Encourage continuation of stress-reduction techniques, including planned travel and leisure activities - Monitor anxiety levels during the transition to care home Family Stress - Concerns about Grandson's Development - Assessment: Aarti expresses significant concern about her grandson Jerome's behavior and social skills. She observes behaviors consistent with autism spectrum disorder, including difficulty with social interaction, poor eating manners, and excessive screen time. Aarti notes that Jerome is currently in 5th grade at a [employer] and anticipates potential social challenges when he transitions to public middle school. There is a family history of possible autism spectrum traits, with Aarti suspecting that Jerome's mother (her [id number]) may also be on the spectrum. The recent of Jerome's younger brother, Wilfredo, has introduced additional family dynamics and stress. - Plan: - Provide psychoeducation on autism spectrum disorders and their impact on family dynamics - Discuss strategies for supporting Jerome and his parents without overstepping boundaries - Encourage Aarti to focus on her own well-being and relationship with her during their care home transition - Explore coping mechanisms for managing family-related stress 12/09/2024 Other Problem-Based Assessment and Plan Aarti Em, a retired teacher with a history of anxiety, presents for follow-up reporting improved symptoms but ongoing concerns about childcare and her 's health. Generalized Anxiety Disorder Assessment: Patient reports significant improvement in anxiety symptoms following care home paperwork completion. She has established a daily routine including exercise and relaxation techniques. However, she continues to experience anxiety, particularly around childcare situations and her 's health issues. The patient acknowledges ongoing need for medication management. Plan: - Continue clonazepam 1 mg PO BID - Continue trazodone at night (dose not specified) - Maintain current exercise and relaxation routines - Follow up in 5 months - Patient instructed to contact if needed before next appointment Migraine Assessment: Patient mentions ongoing migraine management with medication. No specific symptoms or frequency discussed. Plan: - Continue current migraine medication (44 tablets every 22 days, as per insurance coverage) Disclaimer: This note has been transcribed using speech recognition software and serves as a reflection of the patient's visit. While efforts have been made to ensure accuracy, there may be errors, including landscape technician inaccuracies and misspellings of medication names. This document should not be considered a verbatim record, and any discrepancies should be verified with the provider. Plan Of Treatment Next Appt Details Provider Name:Ravi Lynch , 11/17/2025 01:00:00 PM, [address] [facility] [address], [place], [address], Insurance Providers Payer Name Payer Address Payer Phone Subscriber Number Group Number Insured Name Patient Relationship to Insured Coverage Start Date Coverage End Date [employer] [address] [place] [phone] [id number] AARTI EM Self - patient is the insured [facility] [address] [place] [phone] [id number] AARTI EM Self - patient is the insured Medical (General) History Medical History History ICD Code Problems: Generalized anxiety disorder Liver enzymes level above reference rang e Primary insomnia Severe recurrent major depression withou t psychotic features , Past Psychiatric History: Anxiety Disord er undefined abdominal aortic aneurysm: No atrial fibrillation: No chronic fatigue syndrome: No essential tremor: No hyperlipidemia: No hypertension: No Parkinson's disease: No restless leg syndrome: No stroke: No subdural hematoma: No type 1 diabetes mellitus: No type 2 diabetes mellitus: No vitamin B12 deficiency: No vitamin D deficiency: No Surgical History Surgery Date(Month/Year) Appendectomy (16823) Tonsillectomy ([id number]) Hysterectomy/revise vagina (52001) Appendectomy (08436) 09/09/2012 Hysterectomy (25109) 11/12/2006 Tonsilectomy/adenoids 03/14/2007
--- OUTSIDE RECORDS SUMMARY | 2025-08-21 09:49 | XMS_ITS | Data Portability ---
Author Organization [facility] Address [address] Medical Oncology & Hematology; [place] [address] Assessment No assessment recorded. Plan of Treatment Reminders Order Date Submit Date Provider Last Modified By Organization Details Last Modified Time Details Appointments None recorded. Lab urinalysi s, dipstick 2018 019 [facility] [place], [address], [place], [address], 9 14:59:02 Referral None recorded. Procedures None recorded. Surgeries None recorded. Imaging None recorded. Medication Orders Macrobid 100 mg capsule 2018 019 [id number], [address] [place], [address], 9 14:30:44 Pyridium 100 mg tablet 2018 019 [id number], [address] [place], [address], 9 14:30:45 Patient TargetsNo targets recorded. Patient Instructions Encounter Date Encounter Id Patient Instructions Last Modified By Organization Details Last Modified Time 05/03/2019 [id number] Finish all antibiotics. Use Pyridium for urinary discomfort. Be sure to use a panty liner as Pyridium can cause your urine to become bright orange and this will stain. Drink plenty of fluids and rest. Use Tylenol or ibuprofen as needed. Follow-up with your primary care provider or return here if no improvement 3 to 5 days. [email or web address] Not available 05/03/2019 14:31:15 Reason for Referral None Reported. Results Created Date Observation Date Name Description Value Unit Range Abnormal Flag Note LastModifiedBy Organization Detail LastModifiedTime 05/03/20 19 05/03/2019 urina lysis , dipst ick Leukocytes large Not Available [facility] - [address], [address], 05/03/2019 14:29:47 05/03/20 19 05/03/2019 urina lysis , dipst ick Nitrite positi ve Not Available [facility] - [address], [address], 05/03/2019 14:29:47 05/03/20 19 05/03/2019 urina lysis , dipst ick Urobilinogen 1.0 E.U./d L Not Available [facility] - [address], [address], 05/03/2019 14:29:47 05/03/20 19 05/03/2019 urina lysis , dipst ick Protein 30 mg/dL Not Available [facility] - [address], [address], 05/03/2019 14:29:47 05/03/2005/03/2019 urina lysis , dipst ick pH 5.0 Not Available Urgent Car [address], [address], 05/03/2019 14:29:47 05/03/2005/03/2019 urina lysis , dipst ick Blood large Not Available Urgent [address], [address], 05/03/2019 14:29:47 05/03/20 19 05/03/2019 urina lysis , dipst ick Specific [place] <=1.00 5 Not Available [facility] - [address], [address], 05/03/2019 14:29:47 05/03/20 19 05/03/2019 urina lysis , dipst ick Ketone negati ve Not Available Urgent [facility] - [address], [address], 05/03/2019 14:29:47 05/03/20 19 05/03/2019 urina lysis , dipst ick Bilirubin negati ve Not Available Urgent [facility] - [address], [address], 05/03/2019 14:29:47 05/03/20 19 05/03/2019 urina lysis , dipst ick Glucose 100 mg/dL Not Available Urgent [facility] - [address], [address], 05/03/2019 14:29:47 05/03/20 19 05/03/2019 urina lysis , dipst ick Appearance vish Not Available [facility] - [address], [address], 05/03/2019 14:29:47 05/03/20 19 05/03/2019 urina lysis , dipst ick Color hazy Not Available Urgent [facility] - [address], [address], 05/03/2019 14:29:47 Result Notes None recorded. Problems Name Problem SNOMED Code Status Onset Date Resolution Date Notes Provider Name and Address Organization Details Recorded Time Endometriosis of uterus 76795062 [facility] 9 14:05:29 Polycystic ovaries Active 2018 [facility] 9 14:05:35 Problem Notes None recorded. Procedures Surgical History Date Name Laterality Status Provider Name and Address Organization Details Recorded Time Hysterectomy completed Vivian Malave [facility] 05/03/2019 14:05:58 Imaging Results None recorded. Procedure Notes None recorded. Medical Equipment None Reported. Allergies No known drug allergies Medications Name Sig Start Date Stop Date Status Note LastModified by Organization Details LastModified Time Pyridium 100 mg tablet Take 1 tablet 3 times a day by oral route for 2 days. active Not Available Not Available Not Avai lable Macrobid 100 mg capsule Take 1 capsule twice a day by oral route for 5 days. active Not Available Not Available Not Avai lable Vitals Date Recorded Body height Body mass index (BMI) Body weight Oxygen saturation Pain severity - 0-10 verbal numeric rating [Score] - Reported Heart rate Respiratory rate Body temperature Systolic And Diastolic Provider Name and Address Organization Details Last Updated DateTime 9 154.94 cm 32.3 kg/m2 07532.3 g 97 % 6 123 /min 20 /min 98.8 [degF] 125/75 mm[Hg] Vivian Malave [facility] 9 14:14:15 Social History Question Answer Notes LastModified by [employer] Details LastModified Time Tobacco Smoking Status Never Smoker Vivian Malave [facility] 05/03/2019 14:05:44 What Was The Date Of Your Most Recent Tobacco Screening? 05/03/2019 Information not available 05/03/2019 How Much Tobacco Do You Smoke? No Information not available 05/03/2019 On What Date Was Tobacco Cessation Counseling Provided? 05/03/2019 Information not available 05/03/2019 How Many Years Have You Smoked Tobacco? 0 Information not available 05/03/2019 Sex: Unknown Functional Status Question Answer Note LastModified by [employer] Details LastModified Time Do you or have you ever used smokeless tobacco? Never used smokeless tobacco Information not available 05/03/2019 Do you or have you ever used e-cigarettes or vape? Never used electronic cigarettes Information not available 05/03/2019 Mental Status None recorded. Family History Relationship Description Onset Age of this Age Resolved Age Notes LastModified by Organization Details LastModified Time Father No current problems or disability [email or web address] Not available 05/03 14:05:42 Mother No current problems or disability [email or web address] Not available 05/03 14:05:42 Medical History Condition Response Coronary Artery Disease N COPD N Edema N Headaches/Migraines N Obesity N Polyps N Infertility N Varicosities N Stroke N Neck Injury N Neurologic Disorder N Kidney Disease N Learning Disorder N Brain Tumors N Eating Disorder N Skin Problems N Constipation N Meningitis N Brain Injury N Tuberculosis N Cerebral Palsy N Mental Health/Psychiatric Illness N Abuse (Physical, Mental, Sexual, Domesti c) N Amputation N Peripheral Vascular Disease N Sleep Disorder N Pulmonary Embolism N Chronic Ear Infections N Chicken Pox N Flomax Use Past or Present N Allergies (Food, seasonal, environmental ) N Anxiety/Depression N Thyroid Disease N Lung Disease N Defects or Inherited Disease N Difficulty Swallowing N Paralysis/Poliomyelitis N Breathing Problems N Anesthesia Complications N Hematologic Disorders N MRSA/MRSA exposure N Orthotics N Congenital Anomalies N Endometriosis N Mental Health/Psychiatric Disorder N Liver Disease N Dialysis N Neurologic Epilepsy/Seizures N Parkinson's Disease N Thrombophlebitis N Thyroid Problems N Multiple Sclerosis N Heart Attack (ND) N Diabetes N Breast Problems N Eye Trauma N Congestive Heart Failure (CHF) N History of STD N Epilepsy/Seizures N Aneurysm N Heart Disease N Hypertension N Pre-Eclampsia N Behavioral or Developmental Disorders N Other N Gout N Dermatologic Disorders N Muscle, Joint, or Bone Pain N Gestational Diabetes N Head Trauma/Injury/Concussion N Muscle, Joint, or Bone Problems N Hallucinations N Behavioral Problems N Arthritis N Blood Clot N Cancer N Crohn's Disease N Leg or Foot Ulcers N Raynaud's Disease N History of Abnormal Pap N Blood Disorders/Diseases N Enlarged Prostate/ Prostate Problems N Arrhythmia N Past Hospitalizations N Ear or Hearing Problems N Artificial Joints N Kidney or Bladder Problems N Neck Pain N PTSD N Urinary Problems N Ulcers N Bleeding Disorder N Abuse (Substance) N Back Problems N Thyroid Disorder N GERD/Reflux N Hepatitis N Neuropathy N Hernia N Ostomy N Vascular Disease N History of STI N Genitourinary Disease N Deep Vein Thrombosis N Polycystic ovary syndrome N High Cholesterol N Foot Deformity N Eye Problems/Diseases N Autoimmune Disease N Falls N Back Pain N Neurological Problems N Bedwetting N Amnesia N Diverticulitis N Sleep Apnea N Osteoporosis N Gynecological HistoryNo gynecological history recorded. Obstetrics History GPAL:G 0 P 0 0 0 0 Past Encounters Encounter ID Performer Location Encounter Start Date Encounter Closed Date Diagnosis/Indication Diagnosis SNOMED-CT Code Diagnosis ICD10 Code Diagnosis IMO Codes Diagnosis Note [id number] SINDI SIBLEY [facility] [place] [address] [facility] [address] [place] [address] 05/03/2019 13:54:05 05/03/2019 14:35:23 Urinary tract infectious disease 06548824 N39.0 Health Concerns Section Related Observation LastModified by Organization Detai ls LastModified Time None Recorded Concern Status LastModified by Organization Details LastModified Time None Recorded Advance Directives Directive None Recorded Payers Insurance Date Sequence Insurance Name Policy Number Policy Cano Covered Member ID Cano Member ID Guarantor Name 05/03/2019 1 [facility] [id number] Aarti Nicole [id number] Aarti Adkins Notes Date Note Type Note Provider Name and Address Organization Details Recorded Time 05/03/2019 text/html 53-year-old female presents to urgent care with a chief complaint of urinary frequency burning and pressure onset this morning. Patient states she has had urinary tract infections in the past and this feels similar. She states her discomfort is a 6 out of 10 on the pain scale with no exacerbating or relieving factors. She has not used any [id number] preparations for alleviation of her symptoms. She is here for evaluation and treatment. SINDI SIBLEY [address] [place], [address], [facility] 05/03/2019 14:36:13 OBGyn Episode No OBEpisode recorded.
[2025-08-21] MEDS: MORPHINE SULFATE (*CRX) 4 MG/ML INJ IV PUSH (10:55)
[2025-08-21] MEDS: ONDANSETRON INJ 4 MG/2 ML VIAL IV PUSH (10:55)
[2025-08-21] MEDS: SODIUM CHLORIDE 0.9% IV 1,000 ML 999 ML IV CONT (10:55)
[2025-08-21 11:05] LABS: Hematocrit 40.2 % (37.0-47.0); Hemoglobin 13.3 g/dL (12.0-15.0); Immature Granulocyte Percent A 0.2 % (0-0.5); Lymphocytes Absolute Auto 2.09 K/mm3 (0.9-3.2); Mean Corpuscular HGB Conc 33.1 g/dl (32-36); Mean Corpuscular Hemoglobin 29.0 pg (26-34); Mean Corpuscular Volume 87.6 fl (80-100); Nucleated Red Blood Cells Absolute Auto 0.000 K/mm3 (0.0-0.012); Nucleated Red Blood Cells Perc 0.0 % (0.0-0.2); Platelet Count Result 321 k/mm3 (150-375); Red Blood Count 4.59 M/mm3 (4.2-5.4); White Blood Count 4.2 K/mm3 (4.5-10.0)
[2025-08-21 11:07] LABS: Add Urine Microscopic? NO; Appearance Urine Clear (Clear); Glucose Urine UA Negative (Negative); Leukocyte Esterase Ur Negative LEU/UL (Negative); Nitrate Urine Negative (Negative); Specific Grav Ur 1.012 (1.001-1.035)
[2025-08-21 11:15] LABS: Alanine Aminotransferase 33 U/L (6-35); Albumin Level 4.9 g/dL (3.5-5.1); Alkaline Phosphatase 61 U/L (38-126); Anion Gap 8 mmol/L (4-12); Aspartate Amino Transferase 39 U/L (14-36); Bilirubin,Total 0.6 mg/dL (0.2-1.3); Blood Urea Nitrogen 11 mg/dL (7-17); Calcium 9.9 mg/dL (8.4-10.2); Carbon Dioxide 27 mmol/L (22-30); Chloride 102 mmol/L (98-107); Estimated CRCL calculation 49 ml/min; Estimated Glomerular Filt Rate > 60; Glucose 92 mg/dL (65-110); Lipase 145 U/L (23-300); Potassium 4.1 mmol/L (3.4-5.0); Sodium 137 mmol/L (137-145); Total Protein 7.8 g/dL (6.3-8.2)
--- NOTE | 2025-08-21 12:16 | ED_ITS ---
HPI - General Adult General Chief complaint: Abdominal Pain Stated complaint: abd pain Time Seen by Provider: 08/21/25 10:26 History of Present Illness HPI narrative: patient 59-year-old female presents emergency department chief complaint abdominal pain. Patient reports he has been pain left lower quadrant reports nausea vomiting last the patient reports that she was recently treated for a skin infection around umbilicus and reports she also had an upper respiratory infection patient be on it at that time reports that he has had nausea Reports he said vomiting and reports that she has not been passing gas. The patient reports she has had a prior appendectomy reports that she has had a hysterectomy. Related Data Home Medications ?Medication ?Instructions ?Recorded ?Confirmed ?Last Taken ?Type clonazepam 1 mg tablet 1 mg PO BID 11/25/21 4 02/24/24 History trazodone 100 mg tablet 100 mg PO HS 11/25/2102/24/24 History Allergies Allergy/AdvReac Type Severity Reaction Status Date / Time lanolin Allergy Rash Verified 08/21/25 10:04 Review of Systems 2 Review of Systems: A 10 system review of systems was completed on the patient and is negative except for what is stated in the HPI. Nursing and ancillary documentation was reviewed. [facility] Past Medical History Medical History Trigger thumb, left thumb De Quervain's tenosynovitis, right Subcutaneous mass Anxiety Surgical History Surgical History History of surgery on left wrist History of appendectomy History of tonsillectomy History of hysterectomy Social History Social History Smoking status: Never smoker Alcohol intake: never Substance use: never Lack of Transportation: No Lack of Food: Never True Concerned About Future Housing: No Difficulty Paying Gas/Electric Bills: No Difficulty Paying for Meds: No Currently Unemployed: No Education: Bachelor's Degree Living arrangements: with family Occupation/Education: occupation Additional occupation/education comments: teacher Spiritual care concerns: No Exam 2 Narrative: GENERAL: Well-appearing, well-nourished, and in no acute distress. HEAD: Normocephalic, atraumatic. EYES: PERRLA and EOMI. ENT: Nares clear, no rhinorrhea or epistaxis. Mucous membranes moist. NECK: Supple. CHEST: Clear to auscultation. No respiratory distress. HEART: Regular rate and rhythm. No murmur heard. Normal peripheral pulses. ABDOMEN: Soft, Tenderness to palpation left lower quadrant, nondistended, normal active bowel sounds. EXTREMITIES: Normal range of motion. No edema. SKIN: Warm, dry, no rash. NEURO: No focal deficits. Alert and oriented x3. PSYCH: Normal mood and affect. MDM Differential Diagnosis Differential Diagnosis: bowel obstruction, intra-abdominal infection, diverticulitis, colitis, UTI, pyelonephritis, ureterolithiasis laboratory studies were obtained on the patient showed white count 4.2 electrolytes showed no acute abnormality bilirubin is normal lactic acid was normal AST was 39 ALT was 33 lipase is 145 urinalysis showed no evidence UTI CT scan of the abdomen pelvis showed Lung bases: Clear. Visualized heart and pericardium: Unremarkable. Liver: Unremarkable. Gallbladder: Unremarkable. Spleen: Unremarkable. Pancreas: Unremarkable. Adrenal glands: Unremarkable. Kidneys: Right kidney- No hydronephrosis. No renal stones. Left kidney- No hydronephrosis. No renal stones. Distal esophagus/stomach: Unremarkable. Small bowel loops: Normal caliber and wall thickness. Colon: Diverticula. Normal caliber and wall thickness. Appendectomy. Nodes: No enlarged nodes. Peritoneum: No ascites. No free air. Urinary bladder: Unremarkable. Uterus: Removed. Adnexa: No masses. Bones: No acute bony abnormality. Soft tissues: Unremarkable. Aorta: No aneurysm or dissection. IVC: Unremarkable. Main portal vein/SMV/splenic vein: Patent. IMPRESSION: 1. No acute findings. the patient placed on a clear liquid diet will be given a prescription for Zofran and will also be given a prescription for Bentyl Lab Data 08/21/25 10:52 08/21/25 10:52 Labs: Lab Results 08/21/25 Range/Units 10:52 WBC 4.2 L (4.5-10.0) K/mm3 RBC 4.59 (4.2-5.4) M/mm3 Hgb 13.3 (12.0-15.0) g/dL Hct 40.2 (37.0-47.0) % MCV 87.6 (80-100) fl MCH 29.0 (26-34) pg MCHC 33.1 (32-36) g/dl RDW 12.6 (11.5-14.5) % Plt Count 321 (150-375) k/mm3 MPV 9.1 (7.4-10.4) fl Immature Gran % (Auto) 0.2 (0-0.5) % Neut % (Auto) 38.5 L (45.5-73.1) % Lymph % (Auto) 50.4 H (18.3-44.2) % Giles % (Auto) 8.0 (2.6-8.5) % Eos % (Auto) 1.9 (0-4.4) % Baso % (Auto) 1.0 (0.2-1.2) % Lymph # (Auto) 2.09 (0.9-3.2) K/mm3 Giles # (Auto) 0.3 (0.1-0.6) K/mm3 Eos # (Auto) 0.1 (0-0.3) K/mm3 Baso # (Auto) 0.0 (0.0-0.1) K/mm3 Abs Immat Gran (auto) 0.01 (0.00-0.031) K/mm3 Absolute Neuts (auto) 1.6 (1.3-6.7) K/mm3 Absolute Nucleated RBC 0.000 (0.0-0.012) K/mm3 Nucleated RBC % 0.0 (0.0-0.2) % Sodium 137 (137-145) mmol/L Potassium 4.1 (3.4-5.0) mmol/L Chloride 102 (98-107) mmol/L Carbon Dioxide 27 (22-30) mmol/L Anion Gap 8 (4-12) mmol/L BUN 11 (7-17) mg/dL Creatinine 0.83 (0.7-1.0) mg/dL Estim Creat Clear Calc 49 ml/min Estimated GFR > 60 (59 - ) Glucose 92 (65-110) mg/dL Lactic Acid 1.0 (0.7-2.0) mmol/L Calcium 9.9 (8.4-10.2) mg/dL Total Bilirubin 0.6 (0.2-1.3) mg/dL AST 39 H (14-36) U/L ALT 33 (6-35) U/L Alkaline Phosphatase 61 (38-126) U/L Total Protein 7.8 (6.3-8.2) g/dL Albumin 4.9 (3.5-5.1) g/dL Lipase 145 (23-300) U/L Urine Color Yellow (Yellow) Urine Appearance Clear (Clear) Urine pH 8.0 (5.0-9.0) Ur Specific [place] 1.012 (1.001-1.035) Urine Protein Negative (Negative) mg/dL Urine Glucose (UA) Negative (Negative) mg/dL Urine Ketones Negative (Negative) mg/dL Ur Blood (Man) Negative (Negative) Urine Nitrate Negative (Negative) Urine Bilirubin Negative (Negative) Urine Urobilinogen 1.0 (<2.0) mg/dL Leukocyte Esterase Rfl Negative (Negative) HOPE/UL Imaging Data Radiologist's impression: ITS Impressions Abdomen/Pelvis CT 08/21/25 11:44 IMPRESSION: 1. No acute findings. Discharge Plan Discharge Clinical Impression: Abdominal pain, Nausea & vomiting Patient Disposition: Home Condition: Stable Instructions: Antibiotic Form, Acute Nausea and Vomiting (ED), Abdominal Pain (ED) Patient Language: Serbian Prescriptions: New dicyclomine 20 mg tablet 20 mg PO QID PRN (Reason: abdominal discomfort) Qty: 20 0RF ondansetron 4 mg tablet,disintegrating 4 mg PO Q8H PRN (Reason: nausea and vomiting) Qty: 10 0RF No Action clonazepam 1 mg tablet 1 mg PO BID trazodone 100 mg tablet 100 mg PO HS prednisone 10 mg tablet 30 mg PO DAILY Qty: 20 0RF Follow-up/Referrals: Radhames,Dutch Scott MD [Primary Care Provider, Unknown] Time of Disposition: 13:03
[2025-08-21] MEDS: DICYCLOMINE HCL INJ 20 MG/2 ML VIAL IM (12:56)
[2025-08-21 12:58] VITALS: BP 109/70; PULSE 64; RESP 20; O2SAT 96
== END 2025-08-21 13:18 | disposition home or self-care (01) ==
PROVIDERS: Emergency Provider Emergency Medicine; PCP Family Medicine
DX: R10.32 Left lower quadrant pain (principal); R11.2 Nausea with vomiting, unspecified; F41.9 Anxiety disorder, unspecified; Z90.710 Acquired absence of both cervix and uterus
CPT/HCPCS: 36415; 74177; 80053; 81003; 83605; 83690; 85025; 96361; 96372; 96374; 96375; 99284; J0500; J2270; J2405; J7030; Q9967